=== PATIENT | male | born 1950 | race Caucasian/White ===

== ENCOUNTER 2024-04-05 14:57 | Emergency (ER) | payer OTHER, MEDICARE ==
[~2024-04-05] VITALS: Ht 167.6 cm; Wt 119.3 kg
[2024-04-05 15:21] VITALS: BP 174/99
[2024-04-05] MEDS ORDERED: Lidocaine 4% 1 Patch TOP ONE (15:50)
[2024-04-05] MEDS ORDERED: Ketorolac Tromethamine 15mg Vial IM ONE (15:50)
== END 2024-04-05 17:05 | disposition home or self-care (01) ==
LOC: ER 14:57
DX: M54.6 Pain in thoracic spine (principal); Z88.5 Allergy status to narcotic agent; Z79.899 Other long term (current) drug therapy; V89.2XXA Person injured in unspecified motor-vehicle accident, traffic, initial encounter
CPT/HCPCS: 72070; 96372; 99283-25; A9270; J1885

== ENCOUNTER 2024-04-08 05:09 | Emergency (ER) | payer OTHER, MEDICARE ==
[~2024-04-08] VITALS: Ht 167.6 cm; Wt 119.3 kg
[2024-04-08 10:10] VITALS: BP 136/79
== END 2024-04-08 10:15 | disposition home or self-care (01) ==
LOC: ER 05:09
DX: F07.81 Postconcussional syndrome (principal); M54.9 Dorsalgia, unspecified; V89.2XXA Person injured in unspecified motor-vehicle accident, traffic, initial encounter; Z88.5 Allergy status to narcotic agent
CPT/HCPCS: 70450; 72125; 72128; 99284-25